=== PATIENT | female | born 2000 | race American Indian/Alaskan Native ===

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

== ENCOUNTER 2020-01-10 23:56 | Emergency (ER) | payer SELFPAY ==
[2020-01-11 00:07] VITALS: BP 119/65
--- NOTE | 2020-01-11 05:03 | Emergency Department Report ---
ED General Adult HPI - General Chief complaint: Urogenital-Female Stated complaint: CHEST PAIN Source: patient Mode of arrival: Ambulatory Limitations: No Limitations - History of Present Illness Initial comments: Patient is a nulliparous 19-year-old -[place]namese female with no past medical history presents to the ED with complaint of acute onset persistent right breast pain intermittently for the last 5 months, worse in the last 2 days. Patient states that tonight she was unable to sleep because of persistent pain in the right breast. Patient denies dizziness, syncope, traumatic injury, nausea and vomiting, chest pain, shortness of breath, cough or fever and chills. MD Complaint: right breast pain -: Gradual, month(s) (5) Location: chest (right breast) Radiation: non-radiation Severity scale (0 -10): 6 Quality: aching, sharp Consistency: intermittent Improves with: none Worsens with: none Associated Symptoms: denies other symptoms. denies: confusion, chest pain, cough, diaphoresis, fever/chills, headaches, loss of appetite, malaise, nausea/vomiting, seizure, shortness of breath Treatments Prior to Arrival: none - Related Data Previous Rx's Medication Instructions Recorded Last Taken Type Cetirizine HCl [ZyrTEC] 10 mg PO QDAY #20 tab.chew 05/17/16 Unknown Rx Naproxen [Naprosyn] 500 mg PO BID #20 tablet 05/17/16 Unknown Rx Acetaminophen [Tylenol Extra 1,000 mg PO QID PRN #30 tablet 06/05/18 Unknown Rx Strength] Amoxicillin/Potassium Clav 1 each PO BID 10 Days #20 tablet 06/05/18 Unknown Rx [Augmentin 875-125 Tablet] Metoclopramide [Reglan] 10 mg PO ACHS PRN #30 tablet 06/05/18 Unknown Rx diphenhydrAMINE [Benadryl CAP] 25 mg PO Q6HR PRN #30 capsule 06/05/18 Unknown Rx Amoxicillin [Trimox CAP] 500 mg PO BID #20 capsule 01/03/19 Unknown Rx Ibuprofen [Motrin 800 MG tab] 800 mg PO Q8HR PRN #30 tablet 01/10/19 Unknown Rx cephALEXin [Keflex] 500 mg PO Q8HR 10 Days #30 cap 01/10/19 Unknown Rx Ibuprofen [Motrin] 800 mg PO Q8HR PRN #30 tablet 01/11/20 Unknown Rx Allergies Allergy/AdvReac Type Severity Reaction Status Date / Time No Known Allergies Allergy Verified 05/16/16 23:54 ED Review of Systems ROS: Stated complaint: CHEST PAIN Other details as noted in HPI Constitutional: denies: chills, fever Eyes: denies: eye pain, eye discharge, vision change ENT: denies: ear pain, throat pain Respiratory: denies: cough, shortness of breath, wheezing Cardiovascular: other (right breast pain). denies: chest pain, palpitations Endocrine: no symptoms reported Gastrointestinal: denies: abdominal pain, nausea, diarrhea Genitourinary: denies: urgency, dysuria, discharge Musculoskeletal: denies: back pain, joint swelling, arthralgia Skin: denies: rash, lesions Neurological: denies: headache, weakness, paresthesias Psychiatric: denies: anxiety, depression Hematological/Lymphatic: denies: easy bleeding, easy bruising ED Past Medical Hx - Past Medical History Previous Medical History?: Yes Hx Headaches / Migraines: Yes - Surgical History Past Surgical History?: Yes Additional Surgical History: lung collapsed as a baby - Social History Smoking Status: Never Smoker Substance Use Type: None - Medications Home Medications: Home Medications Medication Instructions Recorded Confirmed Last Taken Type Cetirizine HCl [ZyrTEC] 10 mg PO QDAY #20 tab.chew 05/17/16 Unknown Rx Naproxen [Naprosyn] 500 mg PO BID #20 tablet 05/17/16 Unknown Rx Acetaminophen [Tylenol Extra 1,000 mg PO QID PRN #30 tablet 06/05/18 Unknown Rx Strength] Amoxicillin/Potassium Clav 1 each PO BID 10 Days #20 tablet 06/05/18 Unknown Rx [Augmentin 875-125 Tablet] Metoclopramide [Reglan] 10 mg PO ACHS PRN #30 tablet 06/05/18 Unknown Rx diphenhydrAMINE [Benadryl CAP] 25 mg PO Q6HR PRN #30 capsule 06/05/18 Unknown Rx Amoxicillin [Trimox CAP] 500 mg PO BID #20 capsule 01/03/19 Unknown Rx Ibuprofen [Motrin 800 MG tab] 800 mg PO Q8HR PRN #30 tablet 01/10/19 Unknown Rx cephALEXin [Keflex] 500 mg PO Q8HR 10 Days #30 cap 01/10/19 Unknown Rx Ibuprofen [Motrin] 800 mg PO Q8HR PRN #30 tablet 01/11/20 Unknown Rx ED Physical Exam - General Limitations: No Limitations General appearance: alert, in no apparent distress - Head Head exam: Present: atraumatic, normocephalic, normal inspection - Eye Eye exam: Present: normal appearance, PERRL, EOMI Pupils: Present: normal accommodation - ENT ENT exam: Present: normal exam, normal orophraynx, mucous membranes moist, TM's normal bilaterally, normal external ear exam - Neck Neck exam: Present: normal inspection, full ROM - Respiratory Respiratory exam: Present: normal lung sounds bilaterally, other (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 Absent: respiratory distress, wheezes, rales, stridor, chest wall tenderness, accessory muscle use, prolonged expiratory - Cardiovascular Cardiovascular Exam: Present: regular rate, normal rhythm, normal heart sounds. Absent: systolic murmur, diastolic murmur, rubs, gallop - GI/Abdominal GI/Abdominal exam: Present: soft, normal bowel sounds. Absent: distended, tenderness, guarding, rebound, hyperactive bowel sounds, hypoactive bowel sounds - Extremities Exam Extremities exam: Present: normal inspection, full ROM, normal capillary refill - Back Exam Back exam: Present: normal inspection, full ROM. Absent: tenderness, CVA tenderness (R), CVA tenderness (L), muscle spasm, paraspinal tenderness, vertebral tenderness - Neurological Exam Neurological exam: Present: alert, oriented X3, CN II-XII intact, normal gait, reflexes normal - Psychiatric Psychiatric exam: Present: normal affect, normal mood - Skin Skin exam: Present: warm, dry, intact, normal color. Absent: rash ED Course Vital Signs 01/11/20 00:05 Temperature 98.2 F Pulse Rate 91 H Respiratory 18 Rate Blood Pressure 119/65 O2 Sat by Pulse 96 Oximetry ED Medical Decision Making - Medical Decision Making This is a nulliparous 19-year-old -[place]namese female with no past medical history presents to the ED with complaint of acute onset persistent right breast pain intermittently for the last 5 months, worse in the last 2 days. Patient states that tonight she was unable to sleep because of persistent pain in the right breast. In the ED, patient is alert and oriented x3 and is not in distress. Patient was treated for pain in the ED and based on the physical exam findings of palpable right breast tenderness, and given the fact that the patient's menstrual cycle is irregular, patient symptoms are likely due to fibrocystic breast disease. Patient was discharged home on pain medication and advised follow-up with [facility]LL TABLE OPERATOR physician in 5 to 7 days for reevaluation or return to the ED immediately if symptoms get worse. - Differential Diagnosis fibrocystic breast disease; mastitis; cellulitis; Lymphadenopathy Critical care attestation.: If time is entered above; I have spent that time in minutes in the direct care of this critically ill patient, excluding procedure time. ED Disposition Clinical Impression: Painful lumpy right breast Fibrocystic breast disease (FCBD) in female Qualifiers: Laterality: right Qualified Code(s): N60.11 - Diffuse cystic mastopathy of right breast Disposition: - TO HOME OR SELFCARE Is pt being admited?: No Does the pt Need Aspirin: No Condition: Stable Instructions: Chest Pain (ED) Additional Instructions: Take medication as needed for pain, follow-up with your [facility] OPER[facility] physician in 7 to 10 days for reevaluation. Return to the ED immediately if symptoms get worse. Prescriptions: Ibuprofen [Motrin] 800 mg PO Q8HR PRN #30 tablet PRN Reason: Pain , Severe (7-10) Referrals: [facility] [Provider Group] - 3-5 Days Time of Disposition: 05:14 Print Language: INDONESIAN
== END 2020-01-11 05:44 | disposition home or self-care (01) ==
LOC: ED 23:56
DX: N60.11 Diffuse cystic mastopathy of right breast (principal); F17.200 Nicotine dependence, unspecified, uncomplicated; Z79.899 Other long term (current) drug therapy
CPT/HCPCS: 99282

== ENCOUNTER 2021-07-13 08:13 | Outpatient (CLI) | payer OTHER ==
[~2021-07-13 08:13] MED LIST: LACTATED RINGERS 1,000 ML ONE; LACTATED RINGERS 500 ML IV ONE
[2021-07-13 08:58] LABS: Bacteria,Urine 2+ /HPF (Negative); Bilirubin,Urine NEG (Negative); Blood,Urine SM (Negative); Color,Urine Yellow (Yellow); Protein,Urine <15 mg/dL mg/dL (Negative); Urobilinogen,Urine < 2.0 mg/dL (<2.0)
[2021-07-13 09:26] VITALS: BP 102/56
== END 2021-07-13 09:45 | disposition home or self-care (01) ==
LOC: TRG 08:13 → APU 08:13 → TRG 09:45
PROVIDERS: ATTEND Obstetrics & Gynecology
DX: O62.9 Abnormality of forces of labor, unspecified (principal); O26.893 Other specified pregnancy related conditions, third trimester; R10.9 Unspecified abdominal pain; Z3A.36 36 weeks gestation of pregnancy
CPT/HCPCS: 59025; 81001; J7120; 96360; J3490

== ENCOUNTER 2021-07-30 07:18 | Outpatient (CLI) | payer OTHER ==
[2021-07-30 09:31] VITALS: BP 128/82
[2021-07-30 09:39] LABS: Bacteria,Urine 1+ /HPF (Negative); Mucus,Urine FEW /HPF
[2021-07-30 09:50] LABS: Bilirubin,Urine Negative (Negative); Blood,Urine Negative (Negative); Color,Urine Yellow (Yellow); Urobilinogen,Urine < 2.0 mg/dL (<2.0)
== END 2021-07-30 09:55 | disposition home or self-care (01) ==
LOC: TRG 07:18 → APU 07:19 → TRG 09:55
PROVIDERS: ATTEND Obstetrics & Gynecology
DX: Z34.93 Encounter for supervision of normal pregnancy, unspecified, third trimester (principal); Z3A.38 38 weeks gestation of pregnancy
CPT/HCPCS: 59025; 81001

== ENCOUNTER 2021-08-27 08:35 | Emergency (ER) | payer OTHER ==
--- NOTE | 2021-08-27 10:38 | Electrocardiograph Report ---
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
--- NOTE | 2021-08-27 11:19 | XRay Report ---
CHEST 2 VIEWS INDICATION: cp, . COMPARISON: None. FINDINGS: Support devices: None. Heart: Within normal limits. Lungs/Pleura: No acute air space or interstitial disease. No significant pleural effusion. IMPRESSION: No acute findings. Signer Name: Herman Peters MD Signed: 08/27/2021 11:15 AM Workstation Name: [id number]
--- NOTE | 2021-08-27 11:38 | Emergency Department Report ---
ED Abdominal Pain HPI - General Chief Complaint: Chest Pain Stated Complaint: CHEST PAIN Time Seen by Provider: 08/27/21 09:46 Source: patient, EMS Mode of arrival: Stretcher Limitations: No Limitations - History of Present Illness Initial Comments: Patient is 21 years old female with no significant past medical history. C- section 2 weeks ago. Patient presented to the ER complaining of sudden onset of epigastric abdominal pain that started this morning when she woke up. Patient describes the pain as sharp however is completely resolved. Patient denies any nausea or vomiting. She denied any chest pain or shortness of breath. No fever or chills. MD Complaint: abdominal pain -: Sudden Location: epigastric Radiation: none Migration to: no migration Severity scale (0 -10): 0 Consistency: now resolved Worsens With: nothing Associated Symptoms: denies other symptoms - Related Data Home Medications Medication Instructions Recorded Confirmed Last Taken Ferrous Sulfate [Iron 325 MG] 325 mg PO BID 08/10/21 08/10/21 08/09/21 Pnv No.121/Iron/Folic Acid 1 each PO QDAY 08/10/21 08/10/21 08/09/21 [ Multivitamin Tablet] Previous Rx's Medication Instructions Recorded Last Taken Type Ibuprofen [Motrin] 800 mg PO Q8HR PRN #60 tablet 08/13/21 Unknown Rx oxyCODONE /ACETAMINOPHEN [Percocet 1 tab PO Q6HR PRN #30 tablet 08/13/21 Unknown Rx 5/325] Allergies Allergy/AdvReac Type Severity Reaction Status Date / Time No Known Allergies Allergy Verified 05/16/16 23:54 ED Review of Systems ROS: Stated complaint: CHEST PAIN Other details as noted in HPI Comment: All other systems reviewed and negative Constitutional: denies: chills, fever Respiratory: denies: cough, shortness of breath, SOB with exertion, SOB at rest, wheezing Cardiovascular: denies: chest pain, palpitations Gastrointestinal: abdominal pain. denies: nausea, vomiting, diarrhea, constipation, hematemesis, melena, hematochezia Musculoskeletal: denies: back pain Neurological: denies: headache, weakness, numbness, paresthesias, confusion ED Past Medical Hx - Past Medical History Hx Hypertension: No Hx Diabetes: No Hx Deep Vein Thrombosis: No Hx Renal Disease: No Hx Sickle Cell Disease: No Hx Headaches / Migraines: Yes Hx Seizures: No Hx Asthma: No Hx HIV: No - Surgical History Additional Surgical History: lung collapsed as a baby - Social History Smoking Status: Never Smoker - Medications Home Medications: Home Medications Medication Instructions Recorded Confirmed Last Taken Type Ferrous Sulfate [Iron 325 MG] 325 mg PO BID 08/10/21 08/10/21 08/09/21 History Pnv No.121/Iron/Folic Acid 1 each PO QDAY 08/10/21 08/10/21 08/09/21 History [ Multivitamin Tablet] Ibuprofen [Motrin] 800 mg PO Q8HR PRN #60 tablet 08/13/21 Unknown Rx oxyCODONE /ACETAMINOPHEN [Percocet 1 tab PO Q6HR PRN #30 tablet 08/13/21 Unknown Rx 5/325] ED Physical Exam - General Limitations: No Limitations General appearance: alert, in no apparent distress - Head Head exam: Present: atraumatic, normocephalic, normal inspection - Eye Eye exam: Present: normal appearance - ENT ENT exam: Present: normal exam, normal orophraynx, mucous membranes moist - Neck Neck exam: Present: normal inspection, full ROM. Absent: tenderness, meningismus - Respiratory Respiratory exam: Present: normal lung sounds bilaterally - Cardiovascular Cardiovascular Exam: Present: regular rate, normal rhythm, normal heart sounds - GI/Abdominal GI/Abdominal exam: Present: soft, normal bowel sounds. Absent: distended, tenderness, guarding, rebound, rigid, organomegaly, mass, bruit, pulsatile mass, hernia - Extremities Exam Extremities exam: Present: normal inspection, full ROM, normal capillary refill. Absent: tenderness, pedal edema, joint swelling, calf tenderness - Back Exam Back exam: Present: normal inspection, full ROM. Absent: CVA tenderness (R), CVA tenderness (L) - Neurological Exam Neurological exam: Present: alert, oriented X3, CN II-XII intact, normal gait, reflexes normal. Absent: motor sensory deficit - Psychiatric Psychiatric exam: Present: normal mood - Skin Skin exam: Present: warm, intact, normal color ED Course Vital Signs 08/27/21 08/27/21 08/27/21 08:57 09:40 09:51 Temperature 98.0 F Pulse Rate 76 89 Respiratory 16 18 Rate Blood Pressure Blood Pressure 130/74 142/93 [Right] O2 Sat by Pulse 97 99 100 Oximetry 04/08/27/21 08/27/21 09:52 10:01 10:31 Temperature Pulse Rate 79 78 Respiratory 22 26 H Rate Blood Pressure 141/94 151/91 Blood Pressure [Right] O2 Sat by Pulse 100 100 99 Oximetry 08/27/21 08/27/21 08/27/21 11:02 11:31 12:01 Temperature Pulse Rate Respiratory Rate Blood Pressure 151/91 145/78 151/94 Blood Pressure [Right] O2 Sat by Pulse 100 100 98 Oximetry 08/27/21 08/27/21 08/27/21 12:31 13:01 13:31 Temperature Pulse Rate Respiratory Rate Blood Pressure 151/94 121/72 130/77 Blood Pressure [Right] O2 Sat by Pulse 98 99 99 Oximetry 08/27/21 08/27/21 08/27/21 14:01 14:31 15:01 Temperature Pulse Rate Respiratory Rate Blood Pressure 130/77 129/60 114/56 Blood Pressure [Right] O2 Sat by Pulse 100 99 97 Oximetry 08/27/21 15:49 Temperature Pulse Rate 80 Respiratory 16 Rate Blood Pressure Blood Pressure 114/56 [Right] O2 Sat by Pulse 100 Oximetry ED Medical Decision Making - Lab Data Result diagrams: 08/27/21 12:19 08/27/21 12:19 - Radiology Data Radiology results: report reviewed - Medical Decision Making Patient is 21 years old female with no significant past medical history. C- section 2 weeks ago. Patient presented to the ER complaining of sudden onset of epigastric abdominal pain that started this morning when she woke up. Patient describes the pain as sharp however is completely resolved. Patient denies any nausea or vomiting. She denied any chest pain or shortness of breath. No fever or chills. Patient received morphine and Zofran. Labs reviewed and is unremarkable except for elevated liver enzymes. CT abdomen pelvis is unremarkable. Right upper quadrant ultrasound showed cholelithiasis with no evidence of cholecystitis. Urinalysis positive for UTI. Patient received prescription for Macrobid and Zofran and advised to follow-up with her primary doctor in the next 2 to 3 days and to return to the ER if she develop any new symptoms. Critical care attestation.: If time is entered above; I have spent that time in minutes in the direct care of this critically ill patient, excluding procedure time. ED Disposition Clinical Impression: Acute abdominal pain, Gallbladder calculus, UTI (urinary tract infection) Disposition: 01 HOME / SELF CARE / HOMELESS Is pt being admited?: No Condition: Stable Instructions: Cholelithiasis, Abdominal Pain, Adult, Urinary Tract Infection, Adult, [id number] Referrals: PRIMARY CARE,MD [Primary Care Provider] - 3-5 Days
[2021-08-27] MEDS ORDERED: ONDANSETRON 4 MG/2 ML INJ IV ONE (11:44)
[2021-08-27] MEDS ORDERED: SODIUM CHLORIDE 0.9% 1000 ML 1,000 ML IV ONE (11:44)
[2021-08-27] MEDS ORDERED: MORPHINE 4 MG/1 ML INJ IV ONE (11:44)
[2021-08-27 13:04] LABS: Basophils % (Auto) 0.4 % (0.0-1.8); Eosinophils % (Auto) 0.3 % (0.0-4.3); Hematocrit 32.4 % (30.3-42.9); Hemoglobin 10.2 gm/dl (10.1-14.3); Lymphocytes # (Auto) 1.1 K/mm3 (1.2-5.4); Lymphocytes % (Auto) 11.6 % (13.4-35.0); Mean Corpuscular HGB Conc 31 % (30-34); Mean Corpuscular Volume 85 fl (79-97); Monocytes # (Auto) 0.4 K/mm3 (0.0-0.8); Monocytes % (Auto) 4.4 % (0.0-7.3); Platelet Count 474 K/mm3 (140-440); Red Blood Count 3.81 M/mm3 (3.65-5.03); Red Cell Distribution Width 15.5 % (13.2-15.2)
[2021-08-27 13:17] LABS: Alanine Aminotransferase 97 units/L (7-56); Albumin 3.7 g/dL (3.9-5); Bilirubin,Direct 0.3 mg/dL (0-0.2); Blood Urea Nitrogen 8 mg/dL (7-17); Calcium 9.1 mg/dL (8.4-10.2); Hemolysis Index 0
[2021-08-27 13:23] LABS: BUN/Creatinine Ratio 13
--- NOTE | 2021-08-27 14:16 | Cat Scan Report ---
CT ABDOMEN AND PELVIS WITH CONTRAST INDICATION / CLINICAL INFORMATION: abdominal pain/ recent x2 weeks omni 200 100 ml. TECHNIQUE: Axial CT images were obtained through the abdomen and pelvis after 100 cc of Omnipaque [address] scans at this location are performed using CT dose reduction for ALARA by means of automated exposure control. COMPARISON: None available. FINDINGS: LOWER CHEST: No significant abnormality. AORTA / ARTERIES: No significant abnormality. IVC / VEINS: No significant abnormality. LYMPH NODES: No significant adenopathy. COLON: No significant abnormality. APPENDIX: No significant abnormality. STOMACH / SMALL BOWEL: No significant abnormality. PERITONEUM: No free fluid. No free air. No fluid collection. LIVER: No significant abnormality. GALLBLADDER: No significant abnormality. BILE DUCTS: No significant abnormality. PANCREAS: No significant abnormality. SPLEEN: No significant abnormality. ADRENALS: No significant abnormality. RIGHT KIDNEY / URETER: No significant abnormality. LEFT KIDNEY / URETER: No significant abnormality. URINARY BLADDER: No significant abnormality. REPRODUCTIVE ORGANS: There is a post gravid uterus. Along the left lower uterine segment there is a f ocal fluid collection with peripheral enhancement measuring approximately 1.9 x 2.1 x 2.8 cm. The jose ateral ovaries are identified. SKELETAL SYSTEM: No significant abnormality. ADDITIONAL FINDINGS: None. IMPRESSION: 1. There is a focal fluid collection along the left lower uterine segment measuring 1.9 x 2.1 x 2.8 c m. This nonspecific may represent hematoma versus seroma versus abscess. 2. No other acute findings. Signer Name: Ezekiel Sargent DO Signed: 08/27/2021 2:12 PM Workstation Name: [id number]
[2021-08-27 14:48] LABS: Bilirubin,Urine NEG (Negative); Blood,Urine MOD (Negative); Color,Urine Yellow (Yellow); Mucus,Urine FEW /HPF; Protein,Urine <15 mg/dL mg/dL (Negative); Urobilinogen,Urine < 2.0 mg/dL (<2.0)
[2021-08-27 15:08] VITALS: BP 114/56
--- NOTE | 2021-08-27 16:47 | Ultrasound Report ---
LIMITED RUQ ABDOMINAL ULTRASOUND INDICATION: RUQ PAIN. COMPARISON: No relevant prior imaging study available. FINDINGS: Pancreas: Visualized portions show no significant abnormality. Abdominal Aorta: No significant abnormality. IVC: No significant abnormality. Liver: No significant abnormality. Normal hepatopedal blood flow in the main portal vein. Gallbladder: Multiple stones in the gallbladder without wall thickening or distention. Bile ducts: No significant abnormality. Common bile duct measures 2 mm. Right kidney: No significant abnormality visualized.. Free fluid: None. Additional Findings: None. IMPRESSION: 1. Cholelithiasis without evidence of acute cholecystitis. Signer Name: Tono Do MD Signed: 08/27/2021 4:42 PM Workstation Name: [id number]
== END 2021-08-27 17:15 | disposition home or self-care (01) ==
LOC: ED 08:35
DX: K80.20 Calculus of gallbladder without cholecystitis without obstruction (principal); R10.9 Unspecified abdominal pain; N39.0 Urinary tract infection, site not specified
CPT/HCPCS: 36415; 71046; 74177; 76705; 80048; 80076; 81001; 83690; 85025; 85610; 87086; 93005; 96361; 96374; 96375; 99285; J2270; J2405; J7030; Q9967